=== PATIENT | female | born 1940 | race Caucasian/White ===

== ENCOUNTER 2017-02-26 08:49 | Day surgery (SDC) | payer MEDICARE, OTHER ==
[~2017-02-26] VITALS: Ht 157.5 cm; Wt 87.3 kg
[~2017-02-26 08:49] MED LIST: AMLO10 PO; ASPI325EC PO; ASPI81CH PO; CHOL10002 PO; ERGO400 PO; FOLI1 PO; HYDCHL12.5 PO; HYDSUL200 PO; LEVSOD137 PO; LOSA25 PO; METO100ER PO; OSTERA TABLET1 EACH PO; OXYACE5T PO; POTCHL10ER PO
[2017-02-27 04:05] LABS: BASOPHILS PERCENT AUTO 0 % (0-2); EOSINOPHILS PERCENT AUTO 0 % (0-6); Hemoglobin 10.7 g/dL (11.5-16.0); IMMATURE GRAN ABSOLUTE AUTO 0.03 K/mm3 (0.00-0.10); IMMATURE GRAN PERCENT AUTO 0 % (0-1); LYMPHOCYTES ABSOLUTE AUTO 0.73 K/mm3 (0.84-5.20); LYMPHOCYTES PERCENT AUTO 6 % (21-46); MONOCYTES PERCENT AUTO 5 % (4-13); Mean Corpuscular HGB 28.2 pg (26.0-34.0); Mean Corpuscular HGB Conc 32.4 g/dL (31.5-36.5); Mean Corpuscular Volume 87 fL (80-100); Mean Platelet Volume 10.6 fL (9.1-12.4); NEUTROPHILS ABSOLUTE AUTO 10.67 K/mm3 (1.96-9.15); NEUTROPHILS PERCENT AUTO 89 % (41-73); Platelet Count 214 K/mm3 (150-400); RDW Coefficient Variation 13.5 % (11.7-14.2); RDW Standard Deviation 43.5 fL (35.1-46.3); Red Blood Cell Count 3.79 M/mm3 (3.80-5.20); White Blood Cell Count 12.03 K/mm3 (4.00-11.30)
[2017-02-27 04:21] LABS: Anion Gap 8 mmol/L (6-16); Blood Urea Nitrogen 28 mg/dL (8-24); Bun/Creatinine Ratio 31.6 (12.0-20.0); CO2, Blood 25 mmol/L (21-32); Calcium, Blood 8.5 mg/dL (8.5-10.1); Chloride, Blood 103 mmol/L (98-108); Creatinine, Blood 0.89 mg/dL (0.40-1.00); Glomerular Filtration Rate >60 (60-); Glucose, Blood 154 mg/dL (70-99); Potassium, Blood 4.5 mmol/L (3.5-5.5); Sodium, Blood 136 mmol/L (136-145)
[2017-02-27] MEDS ORDERED: Percocet 5-3251 EACH PO (08:30)
[2017-02-27] MEDS ORDERED: ASPI325EC PO (08:31)
== END 2017-02-27 15:30 | disposition home or self-care (01) ==
LOC: ORSCMMR 08:49 → PRE IP 08:49 → SURS 08:49 → PRE IP 10:30 → EDSTATUS 10:45 → SURS 14:58 → ORSCMMR 02-27 15:30 → SURS 02-27 15:30
PROVIDERS: Orthopaedic Surgery
PROC: 0SRC0J9 Replacement of Right Knee Joint with Synthetic Substitute, Cemented, Open Approach (ICD-10-PCS; principal; 2017-02-26 10:30)
DX: M17.11 Unilateral primary osteoarthritis, right knee (principal); M06.9 Rheumatoid arthritis, unspecified; I10 Essential (primary) hypertension; E66.9 Obesity, unspecified; Z68.33 Body mass index [BMI] 33.0-33.9, adult; M85.80 Other specified disorders of bone density and structure, unspecified site; E03.9 Hypothyroidism, unspecified; Z79.899 Other long term (current) drug therapy
CPT/HCPCS: 36415; 73560-RT; 80048; 85025; 86850; 86900; 86901; 88300; 97110; 97116; 97161; 97530; C1713; C1776; G8978; G8979; J0171; J0690; J0735; J1100; J1170; J1885; J2250; J2370; J2405; J2795; J3010; J3370; J7050; J7120

== ENCOUNTER 2019-11-21 07:26 | Day surgery (SDC) | payer MEDICARE, OTHER ==
[~2019-11-21] VITALS: Ht 152.4 cm; Wt 78.0 kg
[~2019-11-21 07:26] MED LIST changes: +CALCIUM 600 +1 EA11 PO; +ELIQUIS5 M3 PO; +FUROSEMIDE20 MG PO; +K-Dur 20 meq T20 MEQ PO; +Percocet 5-3251 EACH PO; +SPIRONOLACTONE25 MG PO
--- NOTE | 2019-11-21 15:58 | NUR ---
PT DRESSED, IV DC'D INTACT, R TR BAND OFF, DRESSING, SPLINT, SLING TO R ARM, BRACHIAL SITE STABLE W DRESSING INTACT, R GROIN SITE STABLE, PT DC'D BY WC BY THIS RN W DRIVING PT HOME
== END 2019-11-21 15:45 | disposition home or self-care (01) ==
LOC: MHTC 07:26
PROC: B201YZZ Plain Radiography of Multiple Coronary Arteries using Other Contrast (ICD-10-PCS; principal; 2019-11-21)
PROC: 4A023N6 Measurement of Cardiac Sampling and Pressure, Right Heart, Percutaneous Approach (ICD-10-PCS; principal; 2019-11-21)
DX: I07.1 Rheumatic tricuspid insufficiency (principal); I47.2 Ventricular tachycardia; I25.10 Atherosclerotic heart disease of native coronary artery without angina pectoris; I13.0 Hypertensive heart and chronic kidney disease with heart failure and stage 1 through stage 4 chronic kidney disease, or unspecified chronic kidney disease; I50.9 Heart failure, unspecified; I48.19 Other persistent atrial fibrillation; N18.3 Chronic kidney disease, stage 3 (moderate); E89.0 Postprocedural hypothyroidism; Z79.899 Other long term (current) drug therapy; Z79.01 Long term (current) use of anticoagulants; Z87.891 Personal history of nicotine dependence; E78.00 Pure hypercholesterolemia, unspecified; Z88.8 Allergy status to other drugs, medicaments and biological substances
CPT/HCPCS: 36005; 36140; 75710; 75820; 93460; 99152; 99153; C1769; C1894; J0690; J1644; J2250; J3010; J7030; J7040; J7050; Q9967